=== PATIENT | female | born 1995 | race African-American/Black ===

== ENCOUNTER 2018-11-10 21:24 | Emergency (ER) | payer MEDICAID, OTHER ==
[~2018-11-10] VITALS: Ht 157.5 cm; Wt 108.9 kg
[2018-11-10 21:38] VITALS: BP 142/80
[2018-11-10] MEDS ORDERED: ACETAMINOPHEN/CODEINE#3 (300/30mg) TAB PO ONE (23:45)
[2018-11-10] MEDS ORDERED: BACLOFEN 10 MG TAB PO ONE (23:45)
== END 2018-11-11 01:16 | disposition home or self-care (01) ==
LOC: EDBD 21:24 → ER 21:33 → EDBD 21:33 → ER 11-11 01:16
DX: S40.812A Abrasion of left upper arm, initial encounter (principal); M54.2 Cervicalgia; M54.5 Low back pain; M62.830 Muscle spasm of back; V47.5XXA Car driver injured in collision with fixed or stationary object in traffic accident, initial encounter; Y93.I9 Activity, other involving external motion; Y92.488 Other paved roadways as the place of occurrence of the external cause; Y99.8 Other external cause status
CPT/HCPCS: 71046; 72040; 72100